=== PATIENT | male | born 1970 | race Asian ===

== ENCOUNTER 2022-07-22 12:57 | Outpatient (CLI) | payer BC | END 2022-07-22 12:58 | disposition home or self-care (01) | LOC: RAD 12:57 | PROVIDERS: ATTEND Family Medicine | DX: R31.9 Hematuria, unspecified (principal); M61.48 Other calcification of muscle, other site; Z87.442 Personal history of urinary calculi; Z87.891 Personal history of nicotine dependence | CPT/HCPCS: 74022 ==